=== PATIENT | male | born 1995 | race Caucasian/White ===

== ENCOUNTER 2021-05-13 17:23 | Emergency (ER) | payer OTHER ==
[~2021-05-13] VITALS: Ht 182.9 cm; Wt 81.7 kg
[~2021-05-13 17:23] MED LIST: ADDERALL 20 MG20 M1; BENTYL 20 MG TA20 M1 PO; FLEXERIL PO; NORCO 5-325 TA1 EACH PO; PHENERGAN 25 MG25 MG PO; RISPERIDONE 00.25 M1 PO; TORADOL 10 MG T10 MG PO
[2021-05-13 18:51] LABS: ABSOLUTE NEUTROPHILS 11.1 thou/uL (1.4-8.2); BASOPHILS 0.4 % (0.0-2.0); EOSINOPHILS 2.8 % (0.0-3.0); HEMATOCRIT 58.7 % (42.0-52.0); HEMOGLOBIN 19.1 gm/dL (14.0-18.0); LYMPHOCYTES 10.3 % (24.0-44.0); MCH 28.8 pg (26.0-34.0); MCHC 32.6 g/dL (28.0-37.0); MCV 88.3 fL (80.0-100.0); MONOCYTES 4.2 % (1.0-8.0); PLATELET COUNT 486 thou/uL (150-400); POLYS 82.3 % (36.0-66.0); RBC 6.65 mil/uL (4.50-6.00); RDW 14.1 % (10.5-14.5); WBC 13.5 thou/uL (4.0-11.0)
[2021-05-13 18:53] LABS: CALCIUM 9.1 mg/dL (8.5-10.1); CREATININE 1.2 mg/dL (0.7-1.3)
[2021-05-13 21:07] VITALS: BP 108/66
== END 2021-05-13 21:07 | disposition home or self-care (01) ==
LOC: ER 17:23
PROVIDERS: Student in an Organized Health Care Education/Training Program
DX: R19.7 Diarrhea, unspecified (principal); Z20.822 Contact with and (suspected) exposure to COVID-19; J45.909 Unspecified asthma, uncomplicated; Z88.0 Allergy status to penicillin